=== PATIENT | male | born 1990 | race Caucasian/White ===

== ENCOUNTER 2017-05-20 16:54 | Emergency (ER) | payer SELFPAY ==
[2017-05-20 17:02] VITALS: RESP 18; TEMP 98.1
--- NOTE | 2017-05-20 17:38 | EDPHY ---
H & P Stated Complaint: cut 2nd/3rd fingers and l hand when glass broke cleaning fish bowl/deficits HPI/ROS: Chief complaint: Left 2nd and 3rd finger lacerations History of present illness: This is a 27-year-old male, right-hand dominant and up-to-date on tetanus who presents to the emergency department for left 2nd and 3rd finger lacerations. Patient was emptying a fish bowl when it broke cutting his fingers. He has had minimal pain. Minimal bleeding, controlled with a dressing. However he states he cannot flex his left pointer finger. He denies other associated signs or symptoms including no report of abnormal coolness to the fingers. No paresthesias. No other injuries reported. - Personal History Current Tetanus/Diphtheria Vaccine: Yes - Medical/Surgical History Hx Asthma: No Hx Chronic Respiratory Disease: No Hx Diabetes: No Hx Cardiac Disease: No Hx Renal Disease: No Hx Cirrhosis: No Hx Alcoholism: No Hx HIV/AIDS: No Hx Splenectomy or Spleen Trauma: No Other PMH: denies - Social History Smoking Status: Never smoked - Physical Exam Exam: General: Alert, nontoxic Skin: 2 cm laceration at the base of the left 2nd finger over the MCP joint on the flexor surface. No foreign bodies visualized. I am unable to visualize flexor tendon. There is a deep abrasion to the lateral side of the left 3rd finger. No other lesions noted. Musculoskeletal: Patient is unable to flex his left 2nd finger in the MCP, PIP. PIP joint. He has difficulty extending in all of these joints. He is moving all of the joints in all other fingers in all lugo well. Moving the wrist well in all lugo. Vascular: Capillary refill brisk in all fingers the left hand. Radial pulse 2 +. Neurologic: Light touch sensation and two-point discrimination intact in all fingers of the left hand. Constitutional: Initial Vital Signs Temperature (C) 36.7 C 05/20/17 16:59 Heart Rate 91 05/20/17 16:59 Respiratory Rate 18 05/20/17 16:59 Blood Pressure 124/91 H 05/20/17 16:59 O2 Sat (%) 97 05/20/17 16:59 O2 Delivery Mode Room Air Allergies/Adverse Reactions: No Known Allergies Allergy (Unverified 05/20/17 16:59) Home Medications: Medication Instructions Recorded Cephalexin [Keflex] 500 mg PO TID 5 Days cap 05/20/17 Medical Decision Making - Diagnostics Imaging Results: Imaging Impressions Hand X-Ray 05/20/17 17:14 Impression: Negative left hand radiographs. Soft tissue laceration distal left third finger. Imaging: I viewed and interpreted images myself Procedures: Procedure: Laceration repair. Verbal consent was obtained from the patient. The 2 cm laceration on the left 2nd finger was anesthetized in the usual fashion. The wound was irrigated, draped and explored to its base with a gloved finger. No foreign bodies appreciated. The wound was repaired with 5 0 Prolene, 6 simple interrupted sutures. The wound repair was simple. The procedure was performed by myself. Procedure: Splint placement. A radial gutter splint was applied. After application of the splint I returned and re-examined the patient. The splint was adequately immobilizing the joint and distal to the splint the patient's circulation and sensation was intact. ED Course/Re-evaluation: Patient seen under the supervision of my secondary supervising physician Dr. Maureen Haywood. Patient presents for lacerations to his left 2nd and 3rd finger. The fingers are neurovascularly intact. His tetanus is up-to-date. X- ray are negative. Wound is anesthetized, cleaned and explored, no foreign body. I am unable to visualize tendons. I am concerned patient has a tendon laceration to the left 2nd finger flexor tendon. I have consulted with Dr. Oscar Odonnell. He is comfortable with primary closure, splinting, placing patient on antibiotics and having him follow up in clinic. This is performed. I have discussed the importance of close follow-up with a hand surgeon for definitive care. He is given referral information. The patient voiced understanding and agreement with plan. Differential Diagnosis: Included but not limited to laceration, deep structure injury, foreign body contamination - Data Points Medications Given: Discontinued Medications Cephalexin HCl (Keflex) 500 mg PO EDNOW ONE PRN Reason: Protocol Stop: 05/20/17 17:55 Last Admin: 05/20/17 18:02 Dose: 500 mg Departure - Departure Disposition: Home, Routine, Self-Care Clinical Impression: Finger laceration involving tendon Qualifiers: Encounter type: initial encounter Qualified Code(s): S61.219A - Laceration without foreign body of unspecified finger without damage to nail, initial encounter; S66.929A - Laceration of unspecified muscle, fascia and tendon at wrist and hand level, unspecified hand, initial encounter; S66.929A - Laceration of unspecified muscle, fascia and tendon at wrist and hand level, unspecified hand, initial encounter Condition: Fair Instructions: Care For Your Stitches (ED), Laceration (ED), Acute Wounds (ED) Additional Instructions: Follow-up with a hand surgeon next week for recheck without fail I am concerned you have injured the flexor tendon of your finger, this may need to be surgically repaired to prevent long-term disability Take antibiotics as prescribed until finished even feeling better Stitches to be removed in 7 days unless told otherwise by her doctor If symptoms worsen or new symptoms develop return to the emergency room for recheck Referrals: NONE *PRIMARY CARE P,. [Primary Care Provider] - As per Instructions Oscar Odonnell MD [Medical Doctor] - As per Instructions Prescriptions: Cephalexin [Keflex] 500 mg PO TID 5 Days cap
[2017-05-20] MEDS ORDERED: CEPHALEXIN 500 MG CAP PO ONE (17:54)
[2017-05-20 19:15] VITALS: BP 123/89; PULSE 75; O2SAT 96
== END 2017-05-20 19:15 | disposition home or self-care (01) ==
PROC: 0HQGXZZ Repair Left Hand Skin, External Approach (ICD-10-PCS; principal; 2017-05-20)
DX: S66.922A Laceration of unspecified muscle, fascia and tendon at wrist and hand level, left hand, initial encounter (principal); W25.XXXA Contact with sharp glass, initial encounter

== ENCOUNTER 2017-05-30 10:10 | Day surgery (SDC) | payer MEDICAID ==
--- NOTE | 2017-05-29 14:33 | GHP ---
[f rep st] PREOP HISTORY AND PHYSICAL DATE OF ADMISSION: 05/30/2017 DATE OF PLANNED PROCEDURE: 05/30/2017. ADMISSION DIAGNOSIS: Laceration flexor tendon index finger, left finger. PLANNED PROCEDURE: Flexor tendon repair. HISTORY OF PRESENT ILLNESS: The patient is a 27-year-old male who sustained a laceration to his 2nd and 3rd/index and long fingers on 05/20/2017 while he was cleaning out a fish bowl. He was seen in t ER. Wounds were irrigated and closed. He was evaluated in the office and found to have a flexor tendon injury to the index finger. Decision made to proceed with a flexor tendon repair. PRIOR MEDICAL HISTORY: None. SURGICAL HISTORY: None. MEDICATIONS: None. ALLERGIES: None. 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 REVIEW OF SYSTEMS: Unremarkable. PHYSICAL EXAMINATION: GENERAL: Healthy-appearing 27-year-old male. He is alert and oriented x3. V ITAL SIGNS: Blood pressure is 124/91, heart rate is 68, respiratory rate is 18 on room air. HEENT: Normocephalic, atraumatic. Extraocular muscles intact. NECK: Supple. No lymphadenopathy. No JVD . CHEST: Clear to auscultation. CARDIOVASCULAR: Regular rhythm. ABDOMEN: Soft, nontender, nondi stended. There is no hepatosplenomegaly. EXTREMITIES: Exam focused on the left fingers. He has a laceration to the index and long fingers. He has no flexion at the MCP joint of the PIP and DIP join ts. Sensation to light touch is intact to both the index and long fingers. Brisk capillary refill. He has normal function of the long finger. IMAGING: X-rays taken at [facility] on 05/20/2017: Negative for foreign bodies. ASSESSMENT: Laceration, flexor tendon, index finger, left hand. PLAN: I recommend proceeding with a flexor tendon repair to the index finger, left hand. He underst ands he will be splinted followed by extensive physical therapy before being able to return to constr uction work. Risks and benefits were discussed. Preoperative paperwork was completed. Will plan on surgery 05/30. /[id number]/MODL
[2017-05-30] MEDS ORDERED: BUPIVACAINE 0.5% 10 ML SDV ONE ×2 (10:23)
[2017-05-30] MEDS ORDERED: LIDOCAINE 1% 2 ML INJ ID PRN (10:39)
[2017-05-30] MEDS ORDERED: ceFAZolin 2 GM/SWFI 2 GM/20 ML SYR IVP ONE (10:39)
[2017-05-30] MEDS ORDERED: LR 1,000 ML IV ONE (10:39)
[2017-05-30] MEDS ORDERED: LIDOCAINE 0.5% 50 ML SDV ONE ×2 (10:42→11:43)
[2017-05-30] MEDS ORDERED: ceFAZolin 2 GM/SWFI 20 ML SYR IVP ONE (10:42)
[2017-05-30] MEDS ORDERED: LIDOCAINE 1% 2 ML INJ ONE (10:43)
--- NOTE | 2017-05-30 10:46 | PDANEPAE ---
ANE History of Present Illness L index finger flexor tendon repair ANE Past Medical History - Cardiovascular History Hx Hypertension: No Hx Arrhythmias: No Hx Chest Pain: No Hx Coronary Artery / Peripheral Vascular Disease: No Hx CHF / Valvular Disease: No Hx Palpitations: No - Pulmonary History Hx COPD: No Hx Asthma/Reactive Airway Disease: No Hx Recent Upper Respiratory Infection: No Hx Oxygen in Use at Home: No Hx Sleep Apnea: No Sleep Apnea Screening Result - Last Documented: Negative - Neurologic History Hx Cerebrovascular Accident: No Hx Seizures: No Hx Dementia: No - Endocrine History Hx Diabetes: No - Renal History Hx Renal Disorders: No - Liver History Hx Hepatic Disorders: No - Neurological & Psychiatric Hx Hx Neurological and Psychiatric Disorders: No - Cancer History Hx Cancer: No - Congenital Disorder History Hx Congenital Disorders: No - GI History Hx Gastrointestinal Disorders: No - Other Health History Other Health History: 05/20/17 WHILE CLEANING FISH BOWL. GLASS BROKE AND SUFFERED LACERATION - Chronic Pain History Chronic Pain: No - Surgical History Prior Surgeries: NONE ANE Review of Systems Review of systems is: negative Review of Systems: - Exercise capacity METS (RN): 6 METS ANE Patient History - Allergies Allergies/Adverse Reactions: No Known Allergies Allergy (Unverified 05/20/17 16:59) - Home Medications Home medications: home medication list seen and reviewed Home Medications: NK [No Known Home Meds] 05/27/17 [Last Taken Unknown] - Anes Hx Anes Hx: no prior problems - Smoking Hx Smoking Status: Never smoked - Family Anes Hx Family Anes Hx: none Family Hx Anesthesia Complications: NEG ANE Labs/Vital Signs - Vital Signs Height: 182.88 cm Weight: 90.718 kg ANE Physical Exam - Airway Neck exam: FROM Mallampati Score: Class 1 - Pulmonary Pulmonary: no respiratory distress - Cardiovascular Cardiovascular: regular rate and rhythym - ASA Status ASA Status: I ANE Anesthesia Plan Regional Anesthesia: Aayush block Total IV Anesthesia: Yes
[2017-05-30] MEDS ORDERED: MIDAZOLAM 2 MG/2 ML VIAL IVP ONE (10:48)
[2017-05-30 11:05] VITALS: PULSE 85
--- NOTE | 2017-05-30 11:21 | PDHPUP ---
History & Physical Update H&P update statement: This history and physical update is based on an assessment of the patient which was completed after admission or registration (within 24 hours), but prior to the surgery/procedure. H&P update: H&P reviewed & patient examined, no change in patient's condition since H&P completed
[2017-05-30] MEDS ORDERED: PROPOFOL/EMULSION 500 MG/50 ML BOTTLE IV ONE ×2 (11:43→12:11)
[2017-05-30] MEDS ORDERED: fentaNYL 100 MCG/2 ML INJ ONE (12:07)
--- NOTE | 2017-05-30 12:59 | POSTOPPROG ---
Post Op Note Date of Operation: 05/30/17 Surgeon: Oscar Odonnell Anesthesiologist: Mervat Anesthesia: Other (Specify) ([place] block) Pre-op Diagnosis: Flexor tendon laceration left index Post-op Diagnosis: same Procedure: Sup/deep flexor tendon repairs left index Inf/Abcess present in the surg proc area at time of surgery?: No Complications: none
[2017-05-30 13:13] VITALS: TEMP 97.7
[2017-05-30] MEDS ORDERED: MEPERIDINE 25 MG/ML SYR IVP PRN (13:17)
[2017-05-30] MEDS ORDERED: HYDROCODONE/APAP 5/325 TAB PO PRN (13:17)
[2017-05-30] MEDS ORDERED: NALOXONE HCL 0.4 MG/ML INJ IVP PRN (13:17)
[2017-05-30] MEDS ORDERED: ACETAMINOPHEN 500 MG TAB PO PRN (13:17)
[2017-05-30] MEDS ORDERED: PROMETHAZINE HCL 25 MG/ML INJ IVP PRN (13:17)
[2017-05-30] MEDS ORDERED: OXYCODONE/APAP 5/325 TAB PO PRN (13:17)
[2017-05-30] MEDS ORDERED: fentaNYL 100 MCG/2 ML INJ IVP PRN (13:17)
[2017-05-30] MEDS ORDERED: DEXAMETHASONE 4 MG/ML VIAL IVP PRN (13:17)
[2017-05-30] MEDS ORDERED: HYDROmorphONE/DILAUDID 1 MG/ML INJ IVP PRN (13:17)
[2017-05-30] MEDS ORDERED: ONDANSETRON 4 MG/2 ML VIAL IVP PRN (13:17)
--- NOTE | 2017-05-30 13:20 | POSTANESTH ---
Post Anesthetic Evaluation Cardiovascular Status: Normal, Stable, Similar to Pre-Op Cond Respiratory Status: Normal, Stable, Similar to Pre-op Cond. Level of Consciousness/Mental Status: Can Participate in Eval, Mildly Sleepy, Arousable Pain Control: Adequate, Prn Tx Ordered Nausea/Vomiting Control: Adequate, Prn Tx Ordered Complications Possibly Related to Anesthesia: None Noted
[2017-05-30 13:33] VITALS: RESP 18
[2017-05-30 13:54] VITALS: BP 151/79
[2017-05-30 14:19] VITALS: O2SAT 93
--- NOTE | 2017-05-30 15:04 | GOP ---
[f rep st] OPERATIVE REPORT DATE OF OPERATION: 05/30/2017 SURGEON: Oscar Odonnell MD ANESTHESIA: Aayush block. ANESTHESIOLOGIST: Dr. Yañez. PREOPERATIVE DIAGNOSIS: Flexor tendon laceration, left index finger at the metacarpophalangeal joint . POSTOPERATIVE DIAGNOSIS: Flexor tendon laceration, left index finger at the metacarpophalangeal join t. PROCEDURE PERFORMED: Flexor digitorum superficialis and profundus repair, left index finger. FINDINGS: DESCRIPTION OF PROCEDURE: After appropriate written informed consent was obtained, the patient was t aken to the operating room, placed supine on the operating table. Time-out was performed. Patient w as identified. Correct site was identified. He received 2 g of Ancef preoperatively. Dr. Yañez exsanguinated the limb, performed q [place] block as well as monitored anesthesia care. Left upper extr emity was prepped and draped in the usual sterile fashion. There was incision right at the base of the MCP joint. I opened this up and then extended it both pr oximally and distally to find the proximal distal tendon ends. Using a 3-0 V-Loc stitch in a modifie d [place] fashion, there were 4 core strands placed and then a 4-0 Ethibond suture in a running fashi on for an epitenon stitch. I repeated the same procedure for the superficialis tendon. Suture ends were all trimmed. He had good full extension of the finger and flexed all the way down, without undue tension. I did release the A1 duglas to allow better excursion of the tendons. Wound was irrigated. Skin was closed with 3-0 nylon. I instilled 20 mL of 0.5% Marcaine plain aroun d the incision. A dorsal blocking splint, with the MCPs flexed down to 90 degrees and the DIPs and P IPs in neutral, was applied. The patient was awakened from anesthesia, taken to the recovery room in satisfactory condition. There were no immediate intraoperative complications. TOTAL TOURNIQUET TIME: 62 minutes at 250 mmHg. HISTORY: Sunny is a 27-year-old male who was cleaning a fish bowl. The fish bowl broke and he sustai jelly a complete laceration of the flexor tendons of his index finger on his left hand. He was seen in the emergency department. The wound was loosely closed, placed in a splint, evaluated in the office and brought to the operating room today for definitive fixation of his tendon injuries. /[id number]/MODL
== END 2017-05-30 14:20 | disposition home or self-care (01) ==
LOC: FSGY 10:10
PROVIDERS: ATTEND Orthopaedic Surgery
PROC: 0LQ80ZZ Repair Left Hand Tendon, Open Approach (ICD-10-PCS; principal; 2017-05-30 11:30)
DX: S66.121A Laceration of flexor muscle, fascia and tendon of left index finger at wrist and hand level, initial encounter (principal); W25.XXXA Contact with sharp glass, initial encounter
CPT/HCPCS: J0690; J2250; J2704; J3010

== ENCOUNTER 2017-10-10 06:03 | Day surgery (SDC) | payer MEDICAID ==
--- NOTE | 2017-10-09 18:43 | GHP ---
[f rep st] PREOP HISTORY AND PHYSICAL DATE OF ADMISSION: 10/10/2017 DATE OF PLANNED PROCEDURE: 10/10/2017. REASON FOR ADMISSION: Status post flexor tendon repair, index finger left finger, with postoperative adhesions. PLANNED PROCEDURE: Flexor tendon tenolysis, left index finger. PRIOR MEDICAL HISTORY: None. SURGICAL HISTORY: Flexor tendon repair, May 2017. MEDICATIONS: None. ALLERGIES: No known drug allergies. 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 REVIEW OF SYSTEMS: No shortness of breath, chest pain. Otherwise, review of systems unremarkable. HISTORY OF PRESENT ILLNESS: The patient is a 27-year-old male who sustained a laceration to his inde x finger in May while he was cleaning a fish tank. He underwent flexor tendon repair. He has b een doing physical therapy. Already failed to regain full range of motion, and he has quite a bit of adhesions formed around the flexor tendon. Decision made to proceed with a flexor tendon tenolysis. PHYSICAL EXAM: GENERAL: Healthy-appearing 27-year-old male, alert and oriented x3. VITAL SIGNS: B lood pressure is 122/84. Heart rate is 64. Respiratory rate is 16 on room air. HEENT: Normocephal ic, atraumatic. Extraocular muscles intact. NECK: Supple. There is no lymphadenopathy. No JVD. CHEST: Clear to auscultation. CARDIOVASCULAR: Regular rate and rhythm. ABDOMEN: Soft, nontender, nondistended. EXTREMITIES: Focusing on the left index finger, laceration and scar from the surgery has healed well. However, the skin is quite tight over the flexor tendon. He has limited range of motion in both the MCP, PIP, and the DIP joints. ASSESSMENT: Adhesions following flexor tendon repair index finger, left hand. PLAN: Given his diligence with physical therapy and lack of progress, I recommend proceeding with a flexor tendon tenolysis. This was explained in detail to Robbi. He understands the risks. Preoperat lesley paperwork was completed. Will plan on surgery Tuesday at [facility]. /[id number]/MODL
[2017-10-10] MEDS ORDERED: ceFAZolin 2 GM/DEXTROSE 100 ML IV ONE (06:26)
[2017-10-10] MEDS ORDERED: LR 1,000 ML IV ONE (06:27)
[2017-10-10] MEDS ORDERED: BUPIVACAINE 0.25% 30 ML SDV ONE (06:52)
[2017-10-10] MEDS ORDERED: MIDAZOLAM 2 MG/2 ML VIAL IVP ONE (07:09)
[2017-10-10] MEDS ORDERED: PROMETHAZINE HCL 25 MG/ML INJ IVP PRN (07:10)
[2017-10-10] MEDS ORDERED: DEXAMETHASONE 4 MG/ML VIAL IVP PRN (07:10)
[2017-10-10] MEDS ORDERED: ONDANSETRON 4 MG/2 ML VIAL IVP PRN (07:10)
[2017-10-10] MEDS ORDERED: MEPERIDINE 25 MG/0.5 ML AMP IVP PRN (07:10)
[2017-10-10] MEDS ORDERED: NALOXONE HCL 0.4 MG/ML INJ IVP PRN ×2 (07:10→08:50)
[2017-10-10] MEDS ORDERED: LR 500 ML IV PRN (07:10)
--- NOTE | 2017-10-10 07:10 | PDANEPAE ---
ANE Past Medical History - Cardiovascular History Hx Hypertension: No Hx Arrhythmias: No Hx Chest Pain: No Hx Coronary Artery / Peripheral Vascular Disease: No Hx CHF / Valvular Disease: No Hx Palpitations: No - Pulmonary History Hx COPD: No Hx Asthma/Reactive Airway Disease: No Hx Recent Upper Respiratory Infection: No Hx Oxygen in Use at Home: No Hx Sleep Apnea: No Sleep Apnea Screening Result - Last Documented: Negative - Neurologic History Hx Cerebrovascular Accident: No Hx Seizures: No Hx Dementia: No - Endocrine History Hx Diabetes: No - Renal History Hx Renal Disorders: No - Liver History Hx Hepatic Disorders: No - Neurological & Psychiatric Hx Hx Neurological and Psychiatric Disorders: No - Cancer History Hx Cancer: No - Congenital Disorder History Hx Congenital Disorders: No - GI History Hx Gastrointestinal Disorders: No - Other Health History Other Health History: LT INDEX FINGER HAS DEVELOPED SCAR TISSUES IMPEDING MOVEMENT. 05/20/17 WHILE CLEANING FISH BOWL. GLASS BROKE AND SUFFERED LACERATION - Chronic Pain History Chronic Pain: Yes (LT INDEX FINGER) - Surgical History Prior Surgeries: LT INDEX FINGER FLEXOR TENDON REPAIR ANE Review of Systems Review of Systems: - Exercise capacity METS (RN): 6 METS ANE Patient History - Allergies Allergies/Adverse Reactions: No Known Allergies Allergy (Unverified 05/20/17 16:59) - Home Medications Home medications: none Home Medications: NK [No Known Home Meds] 05/27/17 [Last Taken Unknown] - NPO status NPO Since - Liquids (Date): 10/09/17 NPO Since - Solids (Date): 10/09/17 - Anes Hx Anes Hx: no prior problems - Smoking Hx Smoking Status: Never smoked - Family Anes Hx Family Hx Anesthesia Complications: NEG ANE Labs/Vital Signs - Vital Signs Blood Pressure: 142/85 Heart Rate: 70 Respiratory Rate: 16 O2 Sat (%): 98 Height: 182.88 cm Weight: 90.718 kg ANE Physical Exam - Airway Neck exam: FROM Mallampati Score: Class 1 Mouth exam: normal dental/mouth exam - Pulmonary Pulmonary: no respiratory distress, no rales or rhonchi, clear to auscultation - Cardiovascular Cardiovascular: regular rate and rhythym, no murmur, rub, or gallop - ASA Status ASA Status: I ANE Anesthesia Plan Anesthesia Plan: MAC Regional Anesthesia: Thermal block
[2017-10-10] MEDS ORDERED: fentaNYL 100 MCG/2 ML INJ ONE ×2 (07:21→08:13)
[2017-10-10] MEDS ORDERED: LIDOCAINE 0.5% 50 ML SDV ONE (07:21)
[2017-10-10] MEDS ORDERED: PROPOFOL 200 MG/20 ML VIAL ONE ×2 (07:21→07:39)
[2017-10-10] MEDS ORDERED: DEXAMETHASONE 4 MG/ML VIAL ONE ×2 (07:39)
[2017-10-10] MEDS ORDERED: MIDAZOLAM 2 MG/2 ML VIAL ONE (07:41)
[2017-10-10] MEDS ORDERED: PROPOFOL/EMULSION 500 MG/50 ML BOTTLE IV ONE (07:47)
[2017-10-10] MEDS: fentaNYL 100 MCG/2 ML INJ IVP PRN ×2 (08:15→08:21)
--- NOTE | 2017-10-10 08:15 | POSTOPPROG ---
Post Op Note Date of Operation: 10/10/17 Surgeon: Oscar Odonnell Anesthesiologist: violette Pre-op Diagnosis: adhesions Lt index flexor tendon Post-op Diagnosis: same Procedure: flexor tendon tenolysis Findings: severe adhesions at repair site Inf/Abcess present in the surg proc area at time of surgery?: No EBL: Minimal Complications: none
[2017-10-10] MEDS ORDERED: oxyCODONE IR 5 MG TAB PO PRN (08:50)
[2017-10-10] MEDS ORDERED: ACETAMINOPHEN 500 MG TAB PO PRN (08:50)
[2017-10-10] MEDS ORDERED: oxyCODONE IR 5 MG TAB ONE (09:01)
[2017-10-10 09:50] VITALS: BP 136/79
--- NOTE | 2017-10-10 09:52 | GOP ---
[f rep st] OPERATIVE REPORT DATE OF OPERATION: 10/10/2017 SURGEON: Oscar Odonnell MD ANESTHESIA: Aayush block. ANESTHESIOLOGIST: Dr. Cormier. PREOPERATIVE DIAGNOSIS: Adhesions following flexor tendon repair left index finger. POSTOPERATIVE DIAGNOSIS: Adhesions following flexor tendon repair left index finger. PROCEDURE PERFORMED: Flexor tendon tenolysis left index finger. FINDINGS: ESTIMATED BLOOD LOSS: Minimal. INDICATIONS: The patient is a 27-year-old male who sustained a flexor tendon laceration this past [facility] and underwent flexor tendon repair. Despite ongoing physical therapy he was unable to gain ra nge of motion due to stiffness in the tendon. The decision was made to proceed with a flexor tendon tenolysis. DESCRIPTION OF PROCEDURE: After appropriate informed consent was obtained, the patient was taken to the operating room, placed supine on the operating table. Time-out was performed. Patient was ident ified and correct site was identified. He received [address] Cormier administered a [place] block and monitored anesthesia care. Left upper extremity was prepped and draped in usual st erile fashion. Using the previous laceration incision skin was carefully elevated. There was extens lesley fibrosis and adhesions all around the repair site. These were carefully freed up using both adam p and blunt dissection being careful to protect the neurovascular structures. He had much better exc ursion of the tendon with full range of motion of the finger both into flexion and extension. The wo und was irrigated. Skin was closed with 3-0 nylon. I instilled 10 mL of 0.25% Marcaine plain around the incision. Soft sterile dressing was applied. The patient was awakened from anesthesia, taken t o the recovery room in satisfactory condition. There were no immediate intraoperative complications. COMPLICATIONS: None. TOTAL TOURNIQUET TIME: 28 minutes at 250 mmHg. /[id number]/MODL
== END 2017-10-10 09:51 | disposition home or self-care (01) ==
LOC: FSGY 06:03
PROVIDERS: ATTEND Orthopaedic Surgery
PROC: 0LN80ZZ Release Left Hand Tendon, Open Approach (ICD-10-PCS; principal; 2017-10-10 07:15)
DX: M24.642 Ankylosis, left hand (principal)
CPT/HCPCS: J0690; J1100; J2250; J2704; J3010